=== PATIENT | male | born 1970 ===

== ENCOUNTER 2020-07-31 06:16 | Inpatient (IN) ==
[2020-07-31] MEDS ORDERED: PANTOPRAZOLE INJ 80 MG in SODIUM CHLORIDE 0.9% 100 ML IV STA (06:52)
[2020-07-31] MEDS ORDERED: SODIUM CHLORIDE 0.9% 1,000 ML IV STA (06:52)
[2020-07-31] MEDS ORDERED: OCTREOTIDE 100 MCG/ML SYRINGE IV STA (06:52)
[2020-07-31] MEDS ORDERED: SODIUM CHLORIDE 0.9% 1,000 ML IV PRN ×2 (06:53→09:33)
[2020-07-31] MEDS ORDERED: PANTOPRAZOLE 40 MG VIAL IV ONE (07:05)
[2020-07-31] MEDS ORDERED: THIAMINE INJ 100 MG, FOLIC ACID INJ 1 MG, MAGNESIUM SULF INJ 2 GM, MULTIVITAMIN INJ 10 ... IV ONE (07:05)
[2020-07-31 07:24] LABS: Immature Granulocytes % 1.4 %; Immature Granulocytes Absolute 0.19 #; Lymphocytes # 1.3 10*3/uL (1.4-4.0); Lymphocytes % 9.2 % (21.2-54.2); Mean Corpuscular HGB Conc 26.6 GM/DL (32-36); Mean Corpuscular Volume 88.6 FL (87-102); Mean Platelet Volume 11.5 FL (9.6-12.0); Monocytes % 6.3 % (1.7-12.7); NRBC # 0.06 10*3/uL; Neutrophils % 83.1 % (38.7-73.9); Platelet Count 148 T/CUMM (130-400); Red Blood Count 1.23 MC/CUMM (3.8-5.5); Red Cell Distribution Width 18.6 % (9.3-17.3); White Blood Count 13.9 T/CUMM (4-12)
[2020-07-31 07:27] LABS: Hematocrit 10.9 VOL% (42.0-52.0); Hemoglobin 2.9 GM/DL (14.0-18.0)
[2020-07-31 07:28] LABS: INR 1.7; PT Patient Result 17.8 SECS (9.8-11.9); Partial Thromboplastin Time 22.6 SECS (23.9-33.8)
[2020-07-31 07:39] LABS: Albumin 1.6 G/DL (3.4-5.0); Calcium 7.1 MG/DL (8.5-10.1); Osmolality,Calculated 290.7 MOS/KG (273-304); Potassium 3.7 MMOL/L (3.5-5.1); Total Protein 4.1 G/DL (6.4-8.2)
[2020-07-31 08:12] LABS: Burr Cells Slight; Hypochromasia 2+; Lymphocytes 9 % (20-55); Microcytosis 1+; Nucleated Red Blood Cells 1 (0-5); Ovalocytes Slight; Platelet Estimate Normal; Segmented Neutrophils 81 % (50-85); Total Cells Counted 100
[2020-07-31] MEDS: OCTREOTIDE 500 MCG in SODIUM CHLORIDE 0.9% 100 ML IV SCH ×2 (08:25→18:02)
[2020-07-31] MEDS: PANTOPRAZOLE INJ 200 MG in SODIUM CHLORIDE 0.9% 250 ML IV SCH (08:52)
[2020-07-31] MEDS ORDERED: LACTULOSE 20 GM/30 ML UDCUP PO ONE (10:00)
[2020-07-31] MEDS ORDERED: CALCIUM GLUCONATE 2,000 MG in SODIUM CHLORIDE 0.9% 100 ML IV ONE (12:30)
[2020-07-31 13:07] LABS: Hematocrit 21.8 VOL% (42.0-52.0)
[2020-07-31 13:10] LABS: Hemoglobin 6.8 GM/DL (14.0-18.0)
[2020-07-31] MEDS ORDERED: propofoL 200 MG/20 ML VIAL IV ONE (14:00)
[2020-07-31] MEDS ORDERED: PHENYLEPHRINE 1 MG/10 ML SYRINGE IV ONE (14:00)
[2020-07-31] MEDS ORDERED: LIDOCAINE 2% 5 ML VIAL ONE (14:00)
[2020-07-31] MEDS ORDERED: LACTULOSE 20 GM/30 ML UDCUP PO SCH (15:00)
[2020-07-31] MEDS: BISACODYL 5 MG TABLET PO SCH ×2 (15:31→22:06)
[2020-07-31] MEDS ORDERED: ONDANSETRON 4 MG/2 ML VIAL ONE (16:35)
[2020-07-31] MEDS ORDERED: PROMETHAZINE 25 MG/1 ML VIAL IM PRN (16:40)
[2020-07-31] MEDS ORDERED: PROMETHAZINE 25 MG/1 ML VIAL ONE (16:41)
[2020-07-31] MEDS ORDERED: POLYETHYLENE GLYCOL POWDER 255 GM BOTTLE PO ONE (18:00)
[2020-07-31] MEDS ORDERED: KETOROLAC 30 MG/1 ML VIAL IV ONE (19:41)
[2020-07-31 22:41] LABS: Hematocrit 27.1 VOL% (42.0-52.0); Hemoglobin 8.9 GM/DL (14.0-18.0)
[2020-08-01] MEDS: OCTREOTIDE 500 MCG in SODIUM CHLORIDE 0.9% 100 ML IV SCH ×3 (03:14→13:46)
[2020-08-01 06:23] LABS: Basophils % 0.2 % (0.0-0.8); Eosinophils % 0.2 % (0.00-10.9); Hematocrit 24.3 VOL% (42.0-52.0); Hemoglobin 7.9 GM/DL (14.0-18.0); Immature Granulocytes % 0.8 %; Immature Granulocytes Absolute 0.09 #; Lymphocytes % 8.5 % (21.2-54.2); Mean Corpuscular HGB Conc 32.5 GM/DL (32-36); Mean Corpuscular Volume 87.7 FL (87-102); Mean Platelet Volume 11.4 FL (9.6-12.0); Monocytes % 8.8 % (1.7-12.7); NRBC # 0.13 10*3/uL; Neutrophils % 81.5 % (38.7-73.9); Platelet Count 67 T/CUMM (130-400); Red Blood Count 2.77 MC/CUMM (3.8-5.5); Red Cell Distribution Width 15.1 % (9.3-17.3); White Blood Count 11.7 T/CUMM (4-12)
[2020-08-01 06:35] LABS: INR 1.5; PT Patient Result 16.1 SECS (9.8-11.9)
[2020-08-01] MEDS ORDERED: SODIUM CHLORIDE 0.9% 1,000 ML IV PRN ×2 (06:39→06:42)
[2020-08-01 06:43] LABS: Hypochromasia 1+; Microcytosis 1+; Platelet Estimate Decreased
[2020-08-01 06:53] LABS: Albumin 1.8 G/DL (3.4-5.0); Bilirubin,Total 4.4 MG/DL (0.2-1.0); Calcium 7.5 MG/DL (8.5-10.1); Potassium 3.5 MMOL/L (3.5-5.1); Total Protein 4.6 G/DL (6.4-8.2)
[2020-08-01] MEDS: BISACODYL 5 MG TABLET PO SCH (07:01)
[2020-08-01] MEDS: LACTATED RINGERS 1,000 ML IV SCH (08:00)
[2020-08-01] MEDS ORDERED: propofoL 200 MG/20 ML VIAL IV ONE (08:24)
[2020-08-01] MEDS ORDERED: LIDOCAINE 2% 5 ML VIAL ONE ×2 (08:25→08:55)
[2020-08-01] MEDS ORDERED: PHENYLEPHRINE 1 MG/10 ML SYRINGE IV ONE ×2 (08:43→08:55)
[2020-08-01] MEDS: PANTOPRAZOLE INJ 200 MG in SODIUM CHLORIDE 0.9% 250 ML IV SCH (09:52)
[2020-08-01] MEDS ORDERED: LIDOCAINE 2% TOP JELLY 20 ML VIAL INTRAURETH ONE (14:02)
[2020-08-01 14:41] LABS: Bilirubin,Urine Negative (Negative); Blood, Urine Moderate mg/dL (Negative); Glucose,Urine (UA) Negative (Negative); Hyaline Casts,Urine 3 /LPF (0-3); Ketones,Urine Negative (Negative); Mucus,Urine Few /LPF (Occasional); Nitrite,Urine Negative (Negative); Protein,Urine Negative; RBC,Urine 8 /HPF (0-4); Squamous Epithelial Cell,Urine Occasional /HPF (0-10); Urine Appearance CLEAR (Clear); Urine Color Amber (Yellow); Urine Specific Gravity 1.029 (1.001-1.035); Urine Urobilinogen < 2.0 EU/DL (0.2-1.0); WBC,Urine 3 /HPF (0-6)
[2020-08-02] MEDS: OCTREOTIDE 500 MCG in SODIUM CHLORIDE 0.9% 100 ML IV SCH (00:24)
[2020-08-02 05:05] LABS: Basophils % 0.2 % (0.0-0.8); Eosinophils # 0.1 10*3/uL (0.0-0.87); Eosinophils % 2.4 % (0.00-10.9); Hematocrit 24.4 VOL% (42.0-52.0); Hemoglobin 8.3 GM/DL (14.0-18.0); Immature Granulocytes % 1.5 %; Immature Granulocytes Absolute 0.08 #; Lymphocytes # 0.6 10*3/uL (1.4-4.0); Lymphocytes % 10.8 % (21.2-54.2); Mean Corpuscular Volume 86.2 FL (87-102); Mean Platelet Volume 10.2 FL (9.6-12.0); Monocytes % 9.3 % (1.7-12.7); NRBC # 0.04 10*3/uL; Neutrophils % 75.8 % (38.7-73.9); Platelet Count 46 T/CUMM (130-400); Red Blood Count 2.83 MC/CUMM (3.8-5.5); Red Cell Distribution Width 15.4 % (9.3-17.3); White Blood Count 5.5 T/CUMM (4-12)
[2020-08-02 05:13] LABS: INR 1.3; PT Patient Result 14.2 SECS (9.8-11.9)
[2020-08-02 05:20] LABS: Albumin 1.9 G/DL (3.4-5.0); Bilirubin,Total 3.6 MG/DL (0.2-1.0); Calcium 7.3 MG/DL (8.5-10.1); Osmolality,Calculated 282.4 MOS/KG (273-304); Potassium 2.9 MMOL/L (3.5-5.1); Total Protein 4.6 G/DL (6.4-8.2)
[2020-08-02 05:31] LABS: Eosinophils 2 % (0-10); Hypochromasia 1+; Lymphocytes 9 % (20-55); Microcytosis 1+; Polychromasia Few; Segmented Neutrophils 85 % (50-85); Total Cells Counted 100
[2020-08-02 05:32] LABS: Platelet Estimate Decreased
[2020-08-02] MEDS: LACTULOSE 20 GM/30 ML UDCUP PO SCH ×3 (08:27→20:56)
[2020-08-02] MEDS: POTASSIUM CHLORIDE 20 MEQ/15 ML UDCUP PO SCH ×2 (08:27→20:56)
[2020-08-02] MEDS: LACTATED RINGERS 1,000 ML IV SCH (08:30)
[2020-08-02] MEDS: PANTOPRAZOLE INJ 200 MG in SODIUM CHLORIDE 0.9% 250 ML IV SCH (13:21)
[2020-08-03 04:32] LABS: Basophils % 0.3 % (0.0-0.8); Eosinophils # 0.1 10*3/uL (0.0-0.87); Eosinophils % 3.1 % (0.00-10.9); Hematocrit 25.1 VOL% (42.0-52.0); Immature Granulocytes % 1.6 %; Immature Granulocytes Absolute 0.06 #; Lymphocytes # 0.6 10*3/uL (1.4-4.0); Lymphocytes % 15.3 % (21.2-54.2); Mean Corpuscular HGB Conc 31.9 GM/DL (32-36); Mean Platelet Volume 10.5 FL (9.6-12.0); Monocytes % 10.6 % (1.7-12.7); NRBC # 0.02 10*3/uL; Neutrophils % 69.1 % (38.7-73.9); Platelet Count 55 T/CUMM (130-400); Red Blood Count 2.79 MC/CUMM (3.8-5.5); White Blood Count 3.9 T/CUMM (4-12)
[2020-08-03 04:52] LABS: Hypochromasia 1+; Microcytosis 1+; Platelet Estimate Decreased
[2020-08-03 04:59] LABS: Albumin 1.7 G/DL (3.4-5.0); Calcium 7.1 MG/DL (8.5-10.1); Osmolality,Calculated 279.4 MOS/KG (273-304); Potassium 2.8 MMOL/L (3.5-5.1); Total Protein 4.7 G/DL (6.4-8.2)
[2020-08-03] MEDS: LACTULOSE 20 GM/30 ML UDCUP PO SCH ×2 (08:15→21:06)
[2020-08-03] MEDS: SPIRONOLACTONE 50 MG TABLET PO SCH (08:15)
[2020-08-03] MEDS: POTASSIUM CHLORIDE 20 MEQ/15 ML UDCUP PO SCH ×3 (08:46→21:05)
[2020-08-03] MEDS ORDERED: POTASSIUM CHLORIDE 20 MEQ/15 ML UDCUP PO SCH (09:00)
[2020-08-03] MEDS: PANTOPRAZOLE 40 MG VIAL IV SCH (21:07)
[2020-08-04] MEDS: POTASSIUM CHLORIDE 20 MEQ/15 ML UDCUP PO SCH ×4 (02:42→20:59)
[2020-08-04 05:27] LABS: Basophils % 0.2 % (0.0-0.8); Eosinophils # 0.1 10*3/uL (0.0-0.87); Hematocrit 24.2 VOL% (42.0-52.0); Hemoglobin 8.2 GM/DL (14.0-18.0); Immature Granulocytes % 1.2 %; Immature Granulocytes Absolute 0.05 #; Lymphocytes # 0.7 10*3/uL (1.4-4.0); Lymphocytes % 15.9 % (21.2-54.2); Mean Corpuscular HGB Conc 33.9 GM/DL (32-36); Mean Corpuscular Volume 87.1 FL (87-102); Mean Platelet Volume 10.3 FL (9.6-12.0); Monocytes % 10.8 % (1.7-12.7); Neutrophils % 68.9 % (38.7-73.9); Red Blood Count 2.78 MC/CUMM (3.8-5.5); Red Cell Distribution Width 16.4 % (9.3-17.3); White Blood Count 4.3 T/CUMM (4-12)
[2020-08-04 05:37] LABS: Platelet Count 55 T/CUMM (130-400)
[2020-08-04 05:52] LABS: Hypochromasia 1+; Microcytosis 1+; Platelet Estimate Decreased; Polychromasia Slight
[2020-08-04 05:57] LABS: Osmolality,Calculated 272.7 MOS/KG (273-304); Potassium 3.2 MMOL/L (3.5-5.1)
[2020-08-04] MEDS ORDERED: MAGNESIUM SULF RIDER 4 GM/100 ML PREMIX IV PRN (07:22)
[2020-08-04] MEDS ORDERED: MAGNESIUM SULF RIDER 2 GM/50 ML PREMIX IV PRN (07:22)
[2020-08-04] MEDS: SPIRONOLACTONE 50 MG TABLET PO SCH (08:29)
[2020-08-04] MEDS: LACTULOSE 20 GM/30 ML UDCUP PO SCH ×2 (08:29→20:59)
[2020-08-04] MEDS: PANTOPRAZOLE 40 MG VIAL IV SCH (08:29)
[2020-08-04] MEDS ORDERED: SODIUM CHLORIDE 0.9% 1,000 ML IV PRN (11:02)
[2020-08-05] MEDS: POTASSIUM CHLORIDE 20 MEQ/15 ML UDCUP PO SCH ×2 (02:09→08:36)
[2020-08-05 06:05] LABS: Basophils % 0.5 % (0.0-0.8); Eosinophils # 0.1 10*3/uL (0.0-0.87); Eosinophils % 2.9 % (0.00-10.9); Hematocrit 27.5 VOL% (42.0-52.0); Hemoglobin 8.9 GM/DL (14.0-18.0); Immature Granulocytes Absolute 0.04 #; Lymphocytes # 0.4 10*3/uL (1.4-4.0); Mean Corpuscular HGB Conc 32.4 GM/DL (32-36); Mean Corpuscular Volume 88.7 FL (87-102); Mean Platelet Volume 10.9 FL (9.6-12.0); Neutrophils % 74.6 % (38.7-73.9); Platelet Count 56 T/CUMM (130-400); Red Cell Distribution Width 17.1 % (9.3-17.3); White Blood Count 3.8 T/CUMM (4-12)
[2020-08-05 06:28] LABS: Hypochromasia 1+; Microcytosis 1+; Platelet Estimate Decreased
[2020-08-05 06:29] LABS: Calcium 7.6 MG/DL (8.5-10.1); Osmolality,Calculated 269.8 MOS/KG (273-304); Potassium 4.4 MMOL/L (3.5-5.1)
[2020-08-05 06:30] LABS: Calcium 7.5 MG/DL (8.5-10.1); Osmolality,Calculated 271.7 MOS/KG (273-304); Potassium 4.5 MMOL/L (3.5-5.1)
[2020-08-05] MEDS: PANTOPRAZOLE 40 MG TABLET PO SCH (08:32)
[2020-08-05] MEDS: LACTULOSE 20 GM/30 ML UDCUP PO SCH ×2 (08:32→21:45)
[2020-08-05] MEDS: SPIRONOLACTONE 50 MG TABLET PO SCH (08:33)
[2020-08-05] MEDS: FUROSEMIDE 20 MG TABLET PO SCH (08:33)
[2020-08-06 05:12] LABS: Basophils % 0.2 % (0.0-0.8); Eosinophils # 0.1 10*3/uL (0.0-0.87); Eosinophils % 3.4 % (0.00-10.9); Hematocrit 27.1 VOL% (42.0-52.0); Hemoglobin 8.9 GM/DL (14.0-18.0); Immature Granulocytes Absolute 0.04 #; Lymphocytes # 0.6 10*3/uL (1.4-4.0); Lymphocytes % 13.7 % (21.2-54.2); Mean Corpuscular HGB Conc 32.8 GM/DL (32-36); Mean Corpuscular Volume 88.3 FL (87-102); Mean Platelet Volume 10.7 FL (9.6-12.0); Monocytes % 7.7 % (1.7-12.7); Red Blood Count 3.07 MC/CUMM (3.8-5.5); Red Cell Distribution Width 17.5 % (9.3-17.3); White Blood Count 4.2 T/CUMM (4-12)
[2020-08-06 05:18] LABS: Platelet Count 62 T/CUMM (130-400)
[2020-08-06 05:31] LABS: Albumin 1.9 G/DL (3.4-5.0); Bilirubin,Total 2.1 MG/DL (0.2-1.0); Calcium 7.5 MG/DL (8.5-10.1); Potassium 3.5 MMOL/L (3.5-5.1); Total Protein 5.5 G/DL (6.4-8.2)
[2020-08-06 06:01] LABS: Hypochromasia 1+; Microcytosis 1+; Platelet Estimate Decreased
[2020-08-06] MEDS: LACTULOSE 20 GM/30 ML UDCUP PO SCH ×2 (08:41→20:34)
[2020-08-06] MEDS: SPIRONOLACTONE 50 MG TABLET PO SCH (08:42)
[2020-08-06] MEDS: PANTOPRAZOLE 40 MG TABLET PO SCH (08:42)
[2020-08-06] MEDS: FUROSEMIDE 20 MG TABLET PO SCH (08:42)
[2020-08-07] MEDS: PANTOPRAZOLE 40 MG TABLET PO SCH (08:10)
[2020-08-07] MEDS: SPIRONOLACTONE 50 MG TABLET PO SCH (08:11)
[2020-08-07] MEDS: FUROSEMIDE 20 MG TABLET PO SCH (08:11)
[2020-08-07] MEDS: LACTULOSE 20 GM/30 ML UDCUP PO SCH (08:11)
[2020-08-07 15:37] VITALS: BP 132/58
== END 2020-08-07 16:59 | disposition home or self-care (01) | DRG 432 ==
LOC: N.ED 06:16 → SUATTDRO 07:14 → N.EDINP 07:14 → N.ICU 08:19 → N.4E 08-03 18:10
PROVIDERS: ADMIT Internal Medicine; ATTEND Internal Medicine
PROC: EGDWEBL (ICD-10-PCS; 2020-07-31 11:35)

== ENCOUNTER 2020-08-10 20:00 | Inpatient (IN) ==
[2020-08-10] MEDS ORDERED: ONDANSETRON 4 MG/2 ML VIAL IV STA (20:14)
[2020-08-10] MEDS ORDERED: SODIUM CHLORIDE 0.9% 1,000 ML IV STA (20:14)
[2020-08-10 20:33] LABS: Basophils % 0.1 % (0.0-0.8); Eosinophils % 0.1 % (0.00-10.9); Immature Granulocytes % 1.4 %; Immature Granulocytes Absolute 0.36 #; Lymphocytes # 2.2 10*3/uL (1.4-4.0); Lymphocytes % 8.5 % (21.2-54.2); Mean Corpuscular HGB Conc 29.9 GM/DL (32-36); Mean Corpuscular Volume 98.6 FL (87-102); Mean Platelet Volume 9.7 FL (9.6-12.0); Monocytes % 5.8 % (1.7-12.7); NRBC # 0.02 10*3/uL; Neutrophils % 84.1 % (38.7-73.9); Platelet Count 244 T/CUMM (130-400); Red Cell Distribution Width 19.1 % (9.3-17.3); White Blood Count 25.6 T/CUMM (4-12)
[2020-08-10 20:40] LABS: Hemoglobin 4.1 GM/DL (14.0-18.0); Red Blood Count 1.39 MC/CUMM (3.8-5.5)
[2020-08-10 20:41] LABS: Hematocrit 13.7 VOL% (42.0-52.0)
[2020-08-10 20:50] LABS: INR 2.1; PT Patient Result 22.5 SECS (10.5-12.0)
[2020-08-10 21:07] LABS: Albumin 1.4 G/DL (3.4-5.0); Bilirubin,Total 2.1 MG/DL (0.2-1.0); Calcium 7.8 MG/DL (8.5-10.1); Osmolality,Calculated 281.8 MOS/KG (273-304); Potassium 4.7 MMOL/L (3.5-5.1); Total Protein 4.4 G/DL (6.4-8.2)
[2020-08-10] MEDS ORDERED: LACTULOSE 20 GM/30 ML UDCUP PO STA ×2 (21:20→21:50)
[2020-08-10] MEDS ORDERED: OCTREOTIDE 100 MCG/ML SYRINGE IV ONE (21:36)
[2020-08-10] MEDS ORDERED: PANTOPRAZOLE 40 MG VIAL IV STA (21:39)
[2020-08-10] MEDS ORDERED: SODIUM CHLORIDE 0.9% 1,000 ML IV PRN (22:21)
[2020-08-10] MEDS ORDERED: ALBUTEROL 2.5 MG/3 ML NEB RESP TX PRN (22:22)
[2020-08-10] MEDS ORDERED: ONDANSETRON 4 MG/2 ML VIAL IV PRN (22:22)
[2020-08-10 22:41] LABS: Hypochromasia 2+; Lymphocytes 4 % (20-55); Platelet Estimate Normal; Segmented Neutrophils 94 % (50-85); Total Cells Counted 100
[2020-08-10 22:42] LABS: Acanthocytes Few; Anisocytosis 2+; Macrocytosis 1+; Microcytosis 1+; Ovalocytes 2+; Polychromasia Few; Target Cells 1+
[2020-08-10] MEDS: LACTULOSE 20 GM/30 ML UDCUP RECTAL SCH (23:18)
[2020-08-11] MEDS ORDERED: LORazepam 2 MG/1 ML VIAL IV STA (00:52)
[2020-08-11] MEDS: PANTOPRAZOLE INJ 200 MG in SODIUM CHLORIDE 0.9% 250 ML IV SCH ×4 (03:38→22:05)
[2020-08-11] MEDS: LACTULOSE 20 GM/30 ML UDCUP RECTAL SCH ×2 (05:00→09:59)
[2020-08-11 05:09] LABS: Basophils # 0.1 10*3/uL (0.0-0.2); Basophils % 0.2 % (0.0-0.8); Eosinophils % 0.1 % (0.00-10.9); Immature Granulocytes % 2.3 %; Immature Granulocytes Absolute 0.93 #; Lymphocytes # 2.3 10*3/uL (1.4-4.0); Lymphocytes % 5.7 % (21.2-54.2); Mean Corpuscular HGB Conc 29.6 GM/DL (32-36); Mean Corpuscular Volume 101.2 FL (87-102); Monocytes % 5.3 % (1.7-12.7); NRBC # 0.02 10*3/uL; Neutrophils % 86.4 % (38.7-73.9); Platelet Count 237 T/CUMM (130-400); Red Blood Count 1.67 MC/CUMM (3.8-5.5); Red Cell Distribution Width 17.6 % (9.3-17.3)
[2020-08-11 05:19] LABS: Hematocrit 16.9 VOL% (42.0-52.0)
[2020-08-11 05:29] LABS: Band Neutrophils 2 % (0-10); Lymphocytes 3 % (20-55); Segmented Neutrophils 93 % (50-85); Total Cells Counted 100
[2020-08-11 05:36] LABS: Hypochromasia 1+
[2020-08-11 05:37] LABS: Anisocytosis 1+; Burr Cells Few; Microcytosis 1+; Platelet Estimate Normal; Polychromasia Slight
[2020-08-11] MEDS ORDERED: SODIUM CHLORIDE 0.9% 1,000 ML IV STA (06:06)
[2020-08-11] MEDS: OCTREOTIDE 500 MCG in SODIUM CHLORIDE 0.9% 99 ML IV SCH ×4 (06:26→22:00)
[2020-08-11 07:33] LABS: Albumin 1.5 G/DL (3.4-5.0); Bilirubin,Total 2.8 MG/DL (0.2-1.0); Calcium 8.3 MG/DL (8.5-10.1); Osmolality,Calculated 287.4 MOS/KG (273-304); Potassium 4.9 MMOL/L (3.5-5.1); Total Protein 4.4 G/DL (6.4-8.2)
[2020-08-11 08:27] LABS: INR 2.1
[2020-08-11 08:46] LABS: PT Patient Result 22.4 SECS (10.5-12.0)
[2020-08-11] MEDS ORDERED: fentaNYL 100 MCG/2 ML VIAL ONE (08:46)
[2020-08-11] MEDS ORDERED: LIDOCAINE 2% 5 ML VIAL ONE (08:46)
[2020-08-11] MEDS ORDERED: ROCURONIUM 50 MG/5 ML VIAL IV ONE (08:46)
[2020-08-11] MEDS ORDERED: MIDAZOLAM 10 MG/2 ML VIAL ONE (08:49)
[2020-08-11] MEDS ORDERED: KETAMINE 500 MG/10 ML VIAL ONE (09:28)
[2020-08-11] MEDS: PIPERACILLIN/TAZOBACTAM 3,375 MG in SODIUM CHLORIDE 0.9% 100 ML IV SCH ×4 (09:59→23:45)
[2020-08-11 10:12] LABS: ABG Base Excess -8.8 MMOL/L (-2.5-2.5); ABG HCO3 17.2 MMOL/L (20-26); ABG Oxygen Saturation 99.1 % (95-100); ABG PCO2 38.6 MM HG (35-48); ABG PH 7.264 (7.35-7.45); ABG TCO2 16.9 MMOL/L (23-27); Allen Test Positive; Pt O2 Delivery Device Ventilator
[2020-08-11 11:08] LABS: Hematocrit 22.3 VOL% (42.0-52.0)
[2020-08-11 11:17] LABS: Hemoglobin 6.9 GM/DL (14.0-18.0)
[2020-08-11] MEDS: LACTULOSE 320 GM/480 ML BOTTLE RECTAL SCH ×3 (12:05→23:45)
[2020-08-11 13:51] LABS: ABG Base Excess -1.2 MMOL/L (-2.5-2.5); ABG HCO3 23.4 MMOL/L (20-26); ABG Oxygen Saturation 99.9 % (95-100); ABG PH 7.482 (7.35-7.45); ABG TCO2 20.1 MMOL/L (23-27); Allen Test Positive; Pt O2 Delivery Device Ventilator
[2020-08-11 15:26] LABS: Bacteria,Urine Occasional /HPF (Few); Bilirubin,Urine Negative (Negative); Blood, Urine Small mg/dL (Negative); Glucose,Urine (UA) Negative (Negative); Ketones,Urine Negative (Negative); Mucus,Urine Occasional /LPF (Occasional); Nitrite,Urine Negative (Negative); Protein,Urine Negative; RBC,Urine 5 /HPF (0-4); Urine Appearance CLEAR (Clear); Urine Color Yellow (Yellow); Urine Specific Gravity 1.017 (1.001-1.035); Urine Urobilinogen < 2.0 EU/DL (0.2-1.0)
[2020-08-11 16:06] LABS: Hematocrit 24.5 VOL% (42.0-52.0)
[2020-08-11] MEDS: MIDAZOLAM 100 MG in SODIUM CHLORIDE 0.9% 80 ML IV PRN (17:49)
[2020-08-11 21:11] LABS: Hemoglobin 7.8 GM/DL (14.0-18.0)
[2020-08-12 04:06] LABS: Hematocrit 22.4 VOL% (42.0-52.0); Hemoglobin 7.5 GM/DL (14.0-18.0)
[2020-08-12 04:07] LABS: Basophils % 0.1 % (0.0-0.8); Eosinophils % 0.4 % (0.00-10.9); Hematocrit 22.6 VOL% (42.0-52.0); Hemoglobin 7.5 GM/DL (14.0-18.0); Immature Granulocytes % 0.9 %; Lymphocytes # 0.9 10*3/uL (1.4-4.0); Lymphocytes % 8.3 % (21.2-54.2); Mean Corpuscular HGB Conc 33.2 GM/DL (32-36); Mean Corpuscular Volume 91.5 FL (87-102); Mean Platelet Volume 9.9 FL (9.6-12.0); Monocytes % 6.7 % (1.7-12.7); NRBC # 0.03 10*3/uL; Neutrophils % 83.6 % (38.7-73.9); Platelet Count 74 T/CUMM (130-400); Red Blood Count 2.47 MC/CUMM (3.8-5.5); Red Cell Distribution Width 15.9 % (9.3-17.3); White Blood Count 11.3 T/CUMM (4-12)
[2020-08-12 04:20] LABS: Albumin 1.7 G/DL (3.4-5.0); Bilirubin,Total 4.2 MG/DL (0.2-1.0); Calcium 7.6 MG/DL (8.5-10.1); Osmolality,Calculated 292.1 MOS/KG (273-304); Total Protein 4.7 G/DL (6.4-8.2)
[2020-08-12 04:44] LABS: ABG Base Excess -1.4 MMOL/L (-2.5-2.5); ABG HCO3 21.7 MMOL/L (20-26); ABG Oxygen Saturation 98.5 % (95-100); ABG PCO2 29.4 MM HG (35-48); ABG PH 7.485 (7.35-7.45); ABG PO2 156.7 MM HG (80-95); ABG TCO2 22.6 MMOL/L (23-27); Allen Test Positive; Pt O2 Delivery Device Ventilator
[2020-08-12 05:04] LABS: INR 1.6; PT Patient Result 17.4 SECS (10.5-12.0)
[2020-08-12] MEDS: LACTULOSE 320 GM/480 ML BOTTLE RECTAL SCH ×5 (05:40→23:30)
[2020-08-12 07:09] LABS: Hypochromasia Slight; Microcytosis 1+
[2020-08-12 07:10] LABS: Platelet Estimate Decreased
[2020-08-12] MEDS: PIPERACILLIN/TAZOBACTAM 3,375 MG in SODIUM CHLORIDE 0.9% 100 ML IV SCH (07:15)
[2020-08-12] MEDS: OCTREOTIDE 500 MCG in SODIUM CHLORIDE 0.9% 99 ML IV SCH ×2 (08:59→20:42)
[2020-08-12 09:19] LABS: Hematocrit 22.6 VOL% (42.0-52.0); Hemoglobin 7.2 GM/DL (14.0-18.0)
[2020-08-12 10:06] LABS: ABG Base Excess 0.2 MMOL/L (-2.5-2.5); ABG HCO3 24.7 MMOL/L (20-26); ABG Oxygen Saturation 99.8 % (95-100); ABG PH 7.474 (7.35-7.45); ABG TCO2 22.1 MMOL/L (23-27); Allen Test Positive; Pt O2 Delivery Device Ventilator
[2020-08-12] MEDS: CEFEPIME 1,000 MG in SODIUM CHLORIDE 0.9% 100 ML IV SCH ×3 (12:36→23:30)
[2020-08-12] MEDS ORDERED: PHYTONADIONE 10 MG/1 ML AMP SUBCUT ONE (13:28)
[2020-08-12 15:08] LABS: Hematocrit 21.6 VOL% (42.0-52.0); Hemoglobin 6.9 GM/DL (14.0-18.0)
[2020-08-12 19:06] LABS: Hematocrit 24.4 VOL% (42.0-52.0); Hemoglobin 7.7 GM/DL (14.0-18.0)
[2020-08-12] MEDS ORDERED: SODIUM CHLORIDE 0.9% 1,000 ML IV PRN (20:15)
[2020-08-12] MEDS: PANTOPRAZOLE INJ 200 MG in SODIUM CHLORIDE 0.9% 250 ML IV SCH (22:25)
[2020-08-13 01:58] LABS: Hematocrit 29.5 VOL% (42.0-52.0); Hemoglobin 9.3 GM/DL (14.0-18.0)
[2020-08-13 04:43] LABS: ABG Base Excess -0.4 MMOL/L (-2.5-2.5); ABG HCO3 24.1 MMOL/L (20-26); ABG Oxygen Saturation 99.7 % (95-100); ABG PCO2 33.7 MM HG (35-48); ABG PH 7.447 (7.35-7.45); ABG TCO2 21.4 MMOL/L (23-27); Allen Test Positive; Pt O2 Delivery Device Ventilator
[2020-08-13 04:49] LABS: Basophils % 0.3 % (0.0-0.8); Eosinophils % 0.9 % (0.00-10.9); Hematocrit 26.1 VOL% (42.0-52.0); Hemoglobin 8.4 GM/DL (14.0-18.0); Immature Granulocytes % 1.2 %; Immature Granulocytes Absolute 0.04 #; Lymphocytes # 0.5 10*3/uL (1.4-4.0); Lymphocytes % 13.4 % (21.2-54.2); Mean Corpuscular HGB Conc 32.2 GM/DL (32-36); Mean Corpuscular Volume 92.2 FL (87-102); Mean Platelet Volume 9.7 FL (9.6-12.0); Monocytes % 8.4 % (1.7-12.7); Neutrophils % 75.8 % (38.7-73.9); Platelet Count 55 T/CUMM (130-400); Red Blood Count 2.83 MC/CUMM (3.8-5.5); Red Cell Distribution Width 16.3 % (9.3-17.3); White Blood Count 3.4 T/CUMM (4-12)
[2020-08-13 05:31] LABS: INR 1.5; PT Patient Result 16.1 SECS (10.5-12.0)
[2020-08-13 05:35] LABS: Albumin 1.6 G/DL (3.4-5.0); Bilirubin,Total 3.5 MG/DL (0.2-1.0); Calcium 7.5 MG/DL (8.5-10.1); Osmolality,Calculated 298.3 MOS/KG (273-304); Potassium 3.6 MMOL/L (3.5-5.1); Total Protein 4.5 G/DL (6.4-8.2)
[2020-08-13] MEDS: CEFEPIME 1,000 MG in SODIUM CHLORIDE 0.9% 100 ML IV SCH ×3 (05:40→17:30)
[2020-08-13] MEDS: LACTULOSE 320 GM/480 ML BOTTLE RECTAL SCH ×3 (06:10→17:42)
[2020-08-13] MEDS: OCTREOTIDE 500 MCG in SODIUM CHLORIDE 0.9% 99 ML IV SCH ×2 (07:14→18:56)
[2020-08-13 07:32] LABS: Platelet Estimate Decreased
[2020-08-13 07:33] LABS: Polychromasia Slight
[2020-08-13 07:34] LABS: Anisocytosis 1+; Microcytosis 1+
[2020-08-13] MEDS: PANTOPRAZOLE 40 MG VIAL IV SCH ×2 (08:17→21:19)
[2020-08-13] MEDS ORDERED: PANTOPRAZOLE 40 MG TABLET PO SCH (09:00)
[2020-08-13] MEDS ORDERED: PHYTONADIONE 10 MG/1 ML AMP SUBCUT ONE (11:29)
[2020-08-13 13:25] LABS: Hematocrit 27.2 VOL% (42.0-52.0); Hemoglobin 8.4 GM/DL (14.0-18.0)
[2020-08-13] MEDS: MIDAZOLAM 100 MG in SODIUM CHLORIDE 0.9% 80 ML IV PRN (16:07)
[2020-08-14] MEDS: OCTREOTIDE 500 MCG in SODIUM CHLORIDE 0.9% 99 ML IV SCH ×2 (00:21→04:28)
[2020-08-14] MEDS: CEFEPIME 1,000 MG in SODIUM CHLORIDE 0.9% 100 ML IV SCH ×4 (00:50→17:26)
[2020-08-14 04:22] LABS: ABG Base Excess -2.4 MMOL/L (-2.5-2.5); ABG HCO3 21.7 MMOL/L (20-26); ABG Oxygen Saturation 98.4 % (95-100); ABG PCO2 34.3 MM HG (35-48); ABG PH 7.419 (7.35-7.45); ABG PO2 129.6 MM HG (80-95); ABG TCO2 22.8 MMOL/L (23-27); Allen Test Positive; Pt O2 Delivery Device Ventilator
[2020-08-14 04:26] LABS: Basophils % 0.4 % (0.0-0.8); Eosinophils # 0.1 10*3/uL (0.0-0.87); Eosinophils % 1.9 % (0.00-10.9); Hematocrit 28.2 VOL% (42.0-52.0); Hemoglobin 8.6 GM/DL (14.0-18.0); Immature Granulocytes % 0.8 %; Immature Granulocytes Absolute 0.02 #; Lymphocytes # 0.4 10*3/uL (1.4-4.0); Lymphocytes % 15.2 % (21.2-54.2); Mean Corpuscular HGB Conc 30.5 GM/DL (32-36); Mean Corpuscular Volume 94.6 FL (87-102); Mean Platelet Volume 9.5 FL (9.6-12.0); Monocytes % 8.4 % (1.7-12.7); Neutrophils % 73.3 % (38.7-73.9); Platelet Count 65 T/CUMM (130-400); Red Blood Count 2.98 MC/CUMM (3.8-5.5); Red Cell Distribution Width 16.4 % (9.3-17.3); White Blood Count 2.6 T/CUMM (4-12)
[2020-08-14 04:47] LABS: Hypochromasia 2+; Microcytosis 1+; Platelet Estimate Decreased
[2020-08-14 05:05] LABS: Albumin 1.7 G/DL (3.4-5.0); Bilirubin,Total 3.6 MG/DL (0.2-1.0); Calcium 7.4 MG/DL (8.5-10.1); Osmolality,Calculated 301.9 MOS/KG (273-304); Potassium 3.5 MMOL/L (3.5-5.1); Total Protein 4.9 G/DL (6.4-8.2)
[2020-08-14] MEDS: LACTULOSE 320 GM/480 ML BOTTLE RECTAL SCH ×6 (05:20→23:52)
[2020-08-14] MEDS: PANTOPRAZOLE 40 MG VIAL IV SCH ×2 (09:04→21:15)
[2020-08-14] MEDS: MIDAZOLAM 100 MG in SODIUM CHLORIDE 0.9% 80 ML IV PRN ×2 (10:37→22:37)
[2020-08-15] MEDS: CEFEPIME 1,000 MG in SODIUM CHLORIDE 0.9% 100 ML IV SCH ×5 (00:20→23:30)
[2020-08-15] MEDS ORDERED: MORPHINE 4 MG/1 ML VIAL IV PRN (00:35)
[2020-08-15 04:04] LABS: ABG Base Excess -3.7 MMOL/L (-2.5-2.5); ABG HCO3 20.8 MMOL/L (20-26); ABG Oxygen Saturation 97.8 % (95-100); ABG PCO2 35.5 MM HG (35-48); ABG PH 7.386 (7.35-7.45); ABG PO2 116.1 MM HG (80-95); ABG TCO2 21.9 MMOL/L (23-27); Allen Test Positive; Pt O2 Delivery Device Ventilator
[2020-08-15] MEDS: LACTULOSE 320 GM/480 ML BOTTLE RECTAL SCH ×4 (04:37→22:40)
[2020-08-15 05:31] LABS: INR 1.3; PT Patient Result 13.9 SECS (10.5-12.0)
[2020-08-15 05:52] LABS: Basophils % 0.3 % (0.0-0.8); Eosinophils # 0.1 10*3/uL (0.0-0.87); Eosinophils % 1.8 % (0.00-10.9); Hemoglobin 8.9 GM/DL (14.0-18.0); Immature Granulocytes % 0.6 %; Immature Granulocytes Absolute 0.02 #; Lymphocytes # 0.5 10*3/uL (1.4-4.0); Lymphocytes % 15.2 % (21.2-54.2); Mean Corpuscular HGB Conc 31.8 GM/DL (32-36); Mean Platelet Volume 9.3 FL (9.6-12.0); Monocytes % 7.3 % (1.7-12.7); Neutrophils % 74.8 % (38.7-73.9); Platelet Count 79 T/CUMM (130-400); Red Blood Count 2.98 MC/CUMM (3.8-5.5); Red Cell Distribution Width 16.6 % (9.3-17.3); White Blood Count 3.3 T/CUMM (4-12)
[2020-08-15 06:12] LABS: Hypochromasia 1+
[2020-08-15 06:13] LABS: Microcytosis 1+; Platelet Estimate Decreased; Polychromasia Slight
[2020-08-15 06:15] LABS: Albumin 1.8 G/DL (3.4-5.0); Bilirubin,Total 4.6 MG/DL (0.2-1.0); Calcium 7.7 MG/DL (8.5-10.1); Osmolality,Calculated 304.6 MOS/KG (273-304); Potassium 3.8 MMOL/L (3.5-5.1); Total Protein 5.3 G/DL (6.4-8.2)
[2020-08-15] MEDS: PANTOPRAZOLE 40 MG VIAL IV SCH ×2 (08:12→20:17)
[2020-08-15] MEDS ORDERED: LIDOCAINE 2% TOP JELLY 20 ML VIAL INTRAURETH ONE ×2 (10:45→11:00)
[2020-08-16 04:11] LABS: ABG Base Excess -2.5 MMOL/L (-2.5-2.5); ABG HCO3 21.1 MMOL/L (20-26); ABG Oxygen Saturation 95.7 % (95-100); ABG PH 7.438 (7.35-7.45); ABG PO2 81.9 MM HG (80-95); ABG TCO2 22.1 MMOL/L (23-27)
[2020-08-16 04:32] LABS: Basophils % 0.4 % (0.0-0.8); Eosinophils % 1.1 % (0.00-10.9); Hematocrit 27.2 VOL% (42.0-52.0); Hemoglobin 8.7 GM/DL (14.0-18.0); Immature Granulocytes % 0.7 %; Immature Granulocytes Absolute 0.02 #; Lymphocytes # 0.4 10*3/uL (1.4-4.0); Lymphocytes % 12.7 % (21.2-54.2); Mean Corpuscular Volume 93.8 FL (87-102); Mean Platelet Volume 9.2 FL (9.6-12.0); Neutrophils % 77.1 % (38.7-73.9); Platelet Count 70 T/CUMM (130-400); White Blood Count 2.8 T/CUMM (4-12)
[2020-08-16] MEDS: LACTULOSE 320 GM/480 ML BOTTLE RECTAL SCH ×3 (04:32→20:37)
[2020-08-16 04:39] LABS: INR 1.3; PT Patient Result 14.1 SECS (10.5-12.0)
[2020-08-16 05:08] LABS: Albumin 1.8 G/DL (3.4-5.0); Bilirubin,Total 4.1 MG/DL (0.2-1.0); Calcium 7.9 MG/DL (8.5-10.1); Osmolality,Calculated 305.4 MOS/KG (273-304); Potassium 3.9 MMOL/L (3.5-5.1); Total Protein 5.5 G/DL (6.4-8.2)
[2020-08-16] MEDS: CEFEPIME 1,000 MG in SODIUM CHLORIDE 0.9% 100 ML IV SCH ×4 (05:20→23:28)
[2020-08-16] MEDS: PANTOPRAZOLE 40 MG VIAL IV SCH ×2 (08:41→20:37)
[2020-08-16] MEDS: LACTATED RINGERS 1,000 ML IV SCH (10:40)
[2020-08-17] MEDS: LACTATED RINGERS 1,000 ML IV SCH ×2 (01:31→14:22)
[2020-08-17] MEDS: LACTULOSE 320 GM/480 ML BOTTLE RECTAL SCH (04:45)
[2020-08-17] MEDS: CEFEPIME 1,000 MG in SODIUM CHLORIDE 0.9% 100 ML IV SCH ×3 (05:42→17:37)
[2020-08-17 05:47] LABS: Basophils % 0.3 % (0.0-0.8); Eosinophils # 0.1 10*3/uL (0.0-0.87); Eosinophils % 2.4 % (0.00-10.9); Hematocrit 28.9 VOL% (42.0-52.0); Hemoglobin 9.3 GM/DL (14.0-18.0); Immature Granulocytes Absolute 0.03 #; Lymphocytes # 0.4 10*3/uL (1.4-4.0); Lymphocytes % 14.8 % (21.2-54.2); Mean Corpuscular HGB Conc 32.2 GM/DL (32-36); Mean Corpuscular Volume 93.8 FL (87-102); Mean Platelet Volume 9.5 FL (9.6-12.0); Monocytes % 8.9 % (1.7-12.7); Neutrophils % 72.6 % (38.7-73.9); Platelet Count 72 T/CUMM (130-400); Red Blood Count 3.08 MC/CUMM (3.8-5.5); Red Cell Distribution Width 17.1 % (9.3-17.3); White Blood Count 2.9 T/CUMM (4-12)
[2020-08-17 05:54] LABS: INR 1.4; PT Patient Result 14.9 SECS (10.5-12.0)
[2020-08-17 06:06] LABS: Hypochromasia 1+; Microcytosis 1+; Platelet Estimate Decreased
[2020-08-17 06:13] LABS: Albumin 1.9 G/DL (3.4-5.0); Bilirubin,Total 4.6 MG/DL (0.2-1.0); Calcium 7.8 MG/DL (8.5-10.1); Osmolality,Calculated 302.6 MOS/KG (273-304); Potassium 3.8 MMOL/L (3.5-5.1); Total Protein 5.6 G/DL (6.4-8.2)
[2020-08-17] MEDS: PANTOPRAZOLE 40 MG TABLET PO SCH ×2 (08:20→18:00)
[2020-08-17] MEDS: PROPRANOLOL 10 MG TABLET PO SCH ×3 (08:20→21:06)
[2020-08-17] MEDS: LACTULOSE 20 GM/30 ML UDCUP PO SCH ×3 (08:20→21:06)
[2020-08-18] MEDS: CEFEPIME 1,000 MG in SODIUM CHLORIDE 0.9% 100 ML IV SCH ×3 (00:59→12:04)
[2020-08-18 05:08] LABS: Basophils % 0.3 % (0.0-0.8); Eosinophils # 0.2 10*3/uL (0.0-0.87); Eosinophils % 3.1 % (0.00-10.9); Hematocrit 30.7 VOL% (42.0-52.0); Hemoglobin 9.2 GM/DL (14.0-18.0); Immature Granulocytes % 0.5 %; Immature Granulocytes Absolute 0.03 #; Lymphocytes # 0.8 10*3/uL (1.4-4.0); Lymphocytes % 11.5 % (21.2-54.2); Mean Corpuscular Volume 96.8 FL (87-102); Mean Platelet Volume 8.9 FL (9.6-12.0); Monocytes % 8.1 % (1.7-12.7); Neutrophils % 76.5 % (38.7-73.9); Platelet Count 93 T/CUMM (130-400); Red Blood Count 3.17 MC/CUMM (3.8-5.5); White Blood Count 6.5 T/CUMM (4-12)
[2020-08-18 05:13] LABS: INR 1.3; PT Patient Result 14.4 SECS (10.5-12.0)
[2020-08-18 05:28] LABS: Albumin 1.8 G/DL (3.4-5.0); Bilirubin,Total 7.1 MG/DL (0.2-1.0); Calcium 7.6 MG/DL (8.5-10.1); Osmolality,Calculated 287.8 MOS/KG (273-304); Potassium 3.5 MMOL/L (3.5-5.1); Total Protein 5.6 G/DL (6.4-8.2)
[2020-08-18 05:31] LABS: Hypochromasia 1+; Microcytosis 1+; Platelet Estimate Decreased
[2020-08-18] MEDS: PANTOPRAZOLE 40 MG TABLET PO SCH ×2 (06:18→18:00)
[2020-08-18] MEDS: PROPRANOLOL 10 MG TABLET PO SCH ×3 (10:50→21:53)
[2020-08-18] MEDS: LACTULOSE 20 GM/30 ML UDCUP PO SCH ×3 (10:50→21:53)
[2020-08-18] MEDS: CLARITHROMYCIN 500 MG TABLET PO SCH (21:53)
[2020-08-18] MEDS: AMOXICILLIN 500 MG CAPSULE PO SCH (21:53)
[2020-08-19] MEDS: PANTOPRAZOLE 40 MG TABLET PO SCH ×2 (06:06→18:00)
[2020-08-19 07:10] LABS: Basophils % 0.2 % (0.0-0.8); Eosinophils # 0.2 10*3/uL (0.0-0.87); Eosinophils % 3.5 % (0.00-10.9); Hemoglobin 8.4 GM/DL (14.0-18.0); Immature Granulocytes % 1.1 %; Immature Granulocytes Absolute 0.05 #; Lymphocytes # 0.6 10*3/uL (1.4-4.0); Lymphocytes % 13.2 % (21.2-54.2); Mean Corpuscular HGB Conc 32.3 GM/DL (32-36); Mean Corpuscular Volume 90.9 FL (87-102); Mean Platelet Volume 10.2 FL (9.6-12.0); Monocytes % 9.7 % (1.7-12.7); Neutrophils % 72.3 % (38.7-73.9); Platelet Count 69 T/CUMM (130-400); Red Blood Count 2.86 MC/CUMM (3.8-5.5); Red Cell Distribution Width 16.6 % (9.3-17.3); White Blood Count 4.6 T/CUMM (4-12)
[2020-08-19 07:15] LABS: Calcium 7.2 MG/DL (8.5-10.1); Osmolality,Calculated 273.8 MOS/KG (273-304); Potassium 3.3 MMOL/L (3.5-5.1)
[2020-08-19] MEDS ORDERED: POTASSIUM CHLORIDE 20 MEQ TABLET PO PRN (07:37)
[2020-08-19 09:19] LABS: Platelet Estimate Adequate
[2020-08-19] MEDS: CLARITHROMYCIN 500 MG TABLET PO SCH ×2 (09:24→20:27)
[2020-08-19] MEDS: AMOXICILLIN 500 MG CAPSULE PO SCH ×2 (09:24→20:27)
[2020-08-19] MEDS: PROPRANOLOL 10 MG TABLET PO SCH ×3 (09:25→20:27)
[2020-08-19] MEDS: LACTULOSE 20 GM/30 ML UDCUP PO SCH ×3 (09:25→20:27)
[2020-08-19] MEDS: POTASSIUM CHLORIDE 20 MEQ/15 ML UDCUP PO SCH (20:27)
[2020-08-20] MEDS: PANTOPRAZOLE 40 MG TABLET PO SCH ×2 (06:10→19:26)
[2020-08-20 06:37] LABS: Basophils % 0.2 % (0.0-0.8); Eosinophils # 0.2 10*3/uL (0.0-0.87); Eosinophils % 3.4 % (0.00-10.9); Hematocrit 26.5 VOL% (42.0-52.0); Hemoglobin 8.6 GM/DL (14.0-18.0); Immature Granulocytes % 1.6 %; Immature Granulocytes Absolute 0.07 #; Lymphocytes # 0.7 10*3/uL (1.4-4.0); Lymphocytes % 16.1 % (21.2-54.2); Mean Corpuscular HGB Conc 32.5 GM/DL (32-36); Mean Corpuscular Volume 91.4 FL (87-102); Mean Platelet Volume 11.1 FL (9.6-12.0); Monocytes % 8.4 % (1.7-12.7); Neutrophils % 70.3 % (38.7-73.9); Platelet Count 65 T/CUMM (130-400); Red Cell Distribution Width 17.2 % (9.3-17.3); White Blood Count 4.4 T/CUMM (4-12)
[2020-08-20 07:00] LABS: Calcium 7.5 MG/DL (8.5-10.1); Potassium 3.7 MMOL/L (3.5-5.1)
[2020-08-20] MEDS: AMOXICILLIN 500 MG CAPSULE PO SCH ×2 (09:19→21:00)
[2020-08-20] MEDS: PROPRANOLOL 10 MG TABLET PO SCH ×3 (09:19→21:01)
[2020-08-20] MEDS: CLARITHROMYCIN 500 MG TABLET PO SCH ×2 (09:19→21:01)
[2020-08-20] MEDS: POTASSIUM CHLORIDE 20 MEQ/15 ML UDCUP PO SCH ×2 (09:21→21:00)
[2020-08-20] MEDS: LACTULOSE 20 GM/30 ML UDCUP PO SCH ×3 (09:21→21:00)
[2020-08-21 05:51] LABS: Basophils % 0.3 % (0.0-0.8); Eosinophils # 0.1 10*3/uL (0.0-0.87); Eosinophils % 3.7 % (0.00-10.9); Hematocrit 25.1 VOL% (42.0-52.0); Hemoglobin 8.3 GM/DL (14.0-18.0); Immature Granulocytes % 1.1 %; Immature Granulocytes Absolute 0.04 #; Lymphocytes # 0.6 10*3/uL (1.4-4.0); Lymphocytes % 14.9 % (21.2-54.2); Mean Corpuscular HGB Conc 33.1 GM/DL (32-36); Mean Platelet Volume 10.2 FL (9.6-12.0); Monocytes % 8.2 % (1.7-12.7); Neutrophils % 71.8 % (38.7-73.9); Platelet Count 67 T/CUMM (130-400); Red Blood Count 2.79 MC/CUMM (3.8-5.5); Red Cell Distribution Width 17.7 % (9.3-17.3); White Blood Count 3.8 T/CUMM (4-12)
[2020-08-21] MEDS: PANTOPRAZOLE 40 MG TABLET PO SCH (06:14)
[2020-08-21 06:15] LABS: Albumin 1.6 G/DL (3.4-5.0); Bilirubin,Total 8.4 MG/DL (0.2-1.0); Calcium 7.1 MG/DL (8.5-10.1); Potassium 3.7 MMOL/L (3.5-5.1); Total Protein 5.3 G/DL (6.4-8.2)
[2020-08-21 06:47] LABS: Hypochromasia 1+
[2020-08-21 06:48] LABS: Microcytosis 1+; Ovalocytes Slight; Platelet Estimate Decreased
[2020-08-21] MEDS: POTASSIUM CHLORIDE 20 MEQ/15 ML UDCUP PO SCH (09:42)
[2020-08-21] MEDS: CLARITHROMYCIN 500 MG TABLET PO SCH (09:43)
[2020-08-21] MEDS: AMOXICILLIN 500 MG CAPSULE PO SCH (09:43)
[2020-08-21] MEDS: LACTULOSE 20 GM/30 ML UDCUP PO SCH ×2 (09:43→14:34)
[2020-08-21] MEDS: PROPRANOLOL 10 MG TABLET PO SCH ×2 (09:51→16:12)
[2020-08-21] MEDS ORDERED: PNEUMOCOCCAL VACCINE (23 VALENT) 0.5 ML VIAL IM ONE (16:04)
[2020-08-21 16:12] VITALS: BP 98/60
== END 2020-08-21 16:45 | disposition home health service (06) | DRG 380 ==
LOC: EDUNIT# → EDBD → N.ED 20:00 → SUATTDRO 21:33 → N.EDINP 21:33 → N.ICU 08-11 09:00 → N.3E 08-17 11:03
PROVIDERS: ADMIT Internal Medicine; ATTEND Internal Medicine

== ENCOUNTER 2020-08-26 14:27 | Inpatient (IN) ==
[2020-08-26] MEDS ORDERED: ALBUTEROL 2.5 MG/3 ML NEB RESP TX PRN (15:41)
[2020-08-26] MEDS ORDERED: SODIUM CHLORIDE 0.9% 1,000 ML IV PRN ×2 (15:43→16:59)
[2020-08-26] MEDS ORDERED: FUROSEMIDE 20 MG/2 ML VIAL IV PRN (15:43)
[2020-08-26 16:35] LABS: Albumin 1.2 G/DL (3.4-5.0); Basophils % 0.1 % (0.0-0.8); Bilirubin,Total 9.8 MG/DL (0.2-1.0); Calcium 6.8 MG/DL (8.5-10.1); Immature Granulocytes % 4.8 %; Immature Granulocytes Absolute 1.13 #; Lymphocytes # 1.8 10*3/uL (1.4-4.0); Lymphocytes % 7.6 % (21.2-54.2); Mean Corpuscular HGB Conc 28.2 GM/DL (32-36); Mean Corpuscular Volume 102.5 FL (87-102); Mean Platelet Volume 10.9 FL (9.6-12.0); NRBC # 0.03 10*3/uL; Neutrophils % 79.5 % (38.7-73.9); Osmolality,Calculated 263.7 MOS/KG (273-304); Platelet Count 150 T/CUMM (130-400); Potassium 4.3 MMOL/L (3.5-5.1); Red Blood Count 1.21 MC/CUMM (3.8-5.5); Red Cell Distribution Width 21.2 % (9.3-17.3); White Blood Count 23.7 T/CUMM (4-12)
[2020-08-26 16:38] LABS: Hemoglobin 3.5 GM/DL (14.0-18.0)
[2020-08-26 16:39] LABS: Hematocrit 12.4 VOL% (42.0-52.0)
[2020-08-26 16:39] LABS: PT Patient Result 21.6 SECS (10.5-12.0)
[2020-08-26] MEDS ORDERED: SODIUM BICARBONATE 50 MEQ/50 ML VIAL IV ONE (17:20)
[2020-08-26] MEDS ORDERED: CALCIUM GLUCONATE 1,000 MG in SODIUM CHLORIDE 0.9% 100 ML IV ONE (17:30)
[2020-08-26] MEDS ORDERED: CLARITHROMYCIN 500 MG TABLET PO SCH (21:00)
[2020-08-26] MEDS: AMOXICILLIN 500 MG CAPSULE PO SCH (21:02)
[2020-08-26] MEDS: CLARITHROMYCIN 500 MG TABLET PO SCH (21:02)
[2020-08-26] MEDS: LACTULOSE 20 GM/30 ML UDCUP PO SCH (21:02)
[2020-08-26] MEDS: PROPRANOLOL 10 MG TABLET PO SCH (21:02)
[2020-08-26] MEDS: PANTOPRAZOLE 40 MG VIAL IV SCH (21:03)
[2020-08-27 02:27] LABS: Lymphocytes 8 % (20-55); Macrocytosis 1+; Platelet Estimate Normal; Segmented Neutrophils 87 % (50-85); Total Cells Counted 100
[2020-08-27 02:28] LABS: Anisocytosis 3+; Hypochromasia Slight; Polychromasia Slight
[2020-08-27 06:09] LABS: Basophils % 0.2 % (0.0-0.8); Eosinophils # 0.2 10*3/uL (0.0-0.87); Eosinophils % 1.7 % (0.00-10.9); Hematocrit 19.7 VOL% (42.0-52.0); Immature Granulocytes % 1.6 %; Immature Granulocytes Absolute 0.19 #; Lymphocytes # 1.3 10*3/uL (1.4-4.0); Lymphocytes % 11.1 % (21.2-54.2); Mean Corpuscular Volume 89.5 FL (87-102); Mean Platelet Volume 10.5 FL (9.6-12.0); Monocytes % 11.7 % (1.7-12.7); NRBC # 0.14 10*3/uL; Neutrophils % 73.7 % (38.7-73.9); Platelet Count 84 T/CUMM (130-400); Red Cell Distribution Width 17.3 % (9.3-17.3)
[2020-08-27 06:11] LABS: Hemoglobin 6.3 GM/DL (14.0-18.0)
[2020-08-27 06:15] LABS: INR 1.7; PT Patient Result 18.4 SECS (10.5-12.0)
[2020-08-27 06:19] LABS: Bacteria,Urine Occasional /HPF (Few); Bilirubin,Urine Negative (Negative); Blood, Urine Small mg/dL (Negative); Glucose,Urine (UA) Negative (Negative); Hyaline Casts,Urine 3 /LPF (0-3); Ketones,Urine Negative (Negative); Mucus,Urine Occasional /LPF (Occasional); Nitrite,Urine Negative (Negative); Protein,Urine Negative; Squamous Epithelial Cell,Urine Occasional /HPF (0-10); Urine Appearance CLEAR (Clear); Urine Color Amber (Yellow); Urine Specific Gravity 1.009 (1.001-1.035); Urine Urobilinogen < 2.0 EU/DL (0.2-1.0)
[2020-08-27 06:29] LABS: Hypochromasia 1+; Microcytosis 1+
[2020-08-27 06:30] LABS: Anisocytosis 1+; Polychromasia Slight
[2020-08-27 06:31] LABS: Target Cells Slight
[2020-08-27 06:32] LABS: Platelet Estimate Decreased
[2020-08-27 06:42] LABS: Albumin 1.3 G/DL (3.4-5.0); Calcium 7.1 MG/DL (8.5-10.1); Osmolality,Calculated 273.1 MOS/KG (273-304); Potassium 3.8 MMOL/L (3.5-5.1); Total Protein 3.9 G/DL (6.4-8.2)
[2020-08-27 06:52] LABS: Bilirubin,Total 12.6 MG/DL (0.2-1.0)
[2020-08-27] MEDS ORDERED: FUROSEMIDE 20 MG/2 ML VIAL IV ONE ×2 (07:34→12:00)
[2020-08-27] MEDS: PANTOPRAZOLE 40 MG VIAL IV SCH ×2 (08:09→20:52)
[2020-08-27] MEDS: AMOXICILLIN 500 MG CAPSULE PO SCH ×2 (08:09→20:51)
[2020-08-27] MEDS: PROPRANOLOL 10 MG TABLET PO SCH ×3 (08:09→20:52)
[2020-08-27] MEDS: CLARITHROMYCIN 500 MG TABLET PO SCH ×2 (08:09→20:52)
[2020-08-27] MEDS: LACTULOSE 20 GM/30 ML UDCUP PO SCH ×5 (08:09→20:52)
[2020-08-27 08:36] LABS: Hematocrit 20.3 VOL% (42.0-52.0); Hemoglobin 6.6 GM/DL (14.0-18.0)
[2020-08-27] MEDS ORDERED: OCTREOTIDE 100 MCG/ML SYRINGE IV ONE (10:47)
[2020-08-27] MEDS ORDERED: MAGNESIUM SULF RIDER 2 GM/50 ML PREMIX IV PRN (11:20)
[2020-08-27] MEDS: OCTREOTIDE 500 MCG in SODIUM CHLORIDE 0.9% 100 ML IV SCH ×2 (11:29→21:50)
[2020-08-27 15:52] LABS: Hematocrit 26.6 VOL% (42.0-52.0); Hemoglobin 8.6 GM/DL (14.0-18.0)
[2020-08-27 22:00] LABS: Hematocrit 25.5 VOL% (42.0-52.0); Hemoglobin 7.9 GM/DL (14.0-18.0)
[2020-08-28 06:05] LABS: INR 1.6; PT Patient Result 17.2 SECS (10.5-12.0)
[2020-08-28 06:27] LABS: Basophils % 0.4 % (0.0-0.8); Eosinophils # 0.4 10*3/uL (0.0-0.87); Eosinophils % 4.3 % (0.00-10.9); Hemoglobin 8.2 GM/DL (14.0-18.0); Immature Granulocytes Absolute 0.17 #; Lymphocytes # 1.5 10*3/uL (1.4-4.0); Lymphocytes % 17.7 % (21.2-54.2); Mean Corpuscular HGB Conc 32.8 GM/DL (32-36); Mean Corpuscular Volume 88.3 FL (87-102); Mean Platelet Volume 10.7 FL (9.6-12.0); Monocytes % 9.1 % (1.7-12.7); NRBC # 0.07 10*3/uL; Neutrophils % 66.5 % (38.7-73.9); Red Blood Count 2.83 MC/CUMM (3.8-5.5); Red Cell Distribution Width 17.1 % (9.3-17.3); White Blood Count 8.4 T/CUMM (4-12)
[2020-08-28 06:29] LABS: Platelet Count 61 T/CUMM (130-400)
[2020-08-28 06:45] LABS: Albumin 1.3 G/DL (3.4-5.0); Calcium 7.1 MG/DL (8.5-10.1); Osmolality,Calculated 266.5 MOS/KG (273-304); Potassium 3.2 MMOL/L (3.5-5.1)
[2020-08-28 06:51] LABS: Bilirubin,Total 14.7 MG/DL (0.2-1.0)
[2020-08-28 06:55] LABS: Band Neutrophils 1 % (0-10); Total Cells Counted 100
[2020-08-28 06:56] LABS: Anisocytosis 2+; Eosinophils 4 % (0-10); Lymphocytes 22 % (20-55); Macrocytosis 2+; Platelet Estimate Decreased; Polychromasia 2+; Segmented Neutrophils 63 % (50-85)
[2020-08-28] MEDS ORDERED: LACTATED RINGERS 1,000 ML IV SCH (07:00)
[2020-08-28 07:03] LABS: Folate 6.25 NG/ML (5.38-24.0)
[2020-08-28] MEDS ORDERED: LIDOCAINE 2% 5 ML VIAL ONE (08:22)
[2020-08-28] MEDS ORDERED: propofoL 200 MG/20 ML VIAL IV ONE (08:22)
[2020-08-28] MEDS ORDERED: ETOMIDATE 20 MG/10 ML VIAL IV ONE (08:24)
[2020-08-28] MEDS ORDERED: PHENYLEPHRINE 1 MG/10 ML SYRINGE IV ONE (08:28)
[2020-08-28] MEDS ORDERED: SODIUM CHLORIDE 0.9% 1,000 ML IV PRN (08:32)
[2020-08-28] MEDS: AMOXICILLIN 500 MG CAPSULE PO SCH ×2 (10:08→21:10)
[2020-08-28] MEDS: FUROSEMIDE 20 MG TABLET PO SCH (10:08)
[2020-08-28] MEDS: PANTOPRAZOLE 40 MG VIAL IV SCH ×2 (10:08→21:10)
[2020-08-28] MEDS: LACTULOSE 20 GM/30 ML UDCUP PO SCH ×4 (10:08→21:10)
[2020-08-28] MEDS: CLARITHROMYCIN 500 MG TABLET PO SCH ×2 (10:08→21:10)
[2020-08-28] MEDS: PROPRANOLOL 10 MG TABLET PO SCH ×3 (10:08→21:10)
[2020-08-28] MEDS: SPIRONOLACTONE 100 MG TABLET PO SCH (10:15)
[2020-08-28] MEDS: OCTREOTIDE 500 MCG in SODIUM CHLORIDE 0.9% 100 ML IV SCH ×2 (14:43→16:12)
[2020-08-29] MEDS: ONDANSETRON 4 MG/2 ML VIAL IV PRN (01:02)
[2020-08-29] MEDS: OCTREOTIDE 500 MCG in SODIUM CHLORIDE 0.9% 100 ML IV SCH ×3 (02:45→23:48)
[2020-08-29] MEDS ORDERED: SODIUM CHLORIDE 0.9% 1,000 ML IV PRN ×2 (04:25→07:59)
[2020-08-29 05:40] LABS: Basophils % 0.3 % (0.0-0.8); Eosinophils # 0.2 10*3/uL (0.0-0.87); Eosinophils % 3.2 % (0.00-10.9); Hematocrit 23.2 VOL% (42.0-52.0); Hemoglobin 7.6 GM/DL (14.0-18.0); Immature Granulocytes % 1.1 %; Immature Granulocytes Absolute 0.08 #; Lymphocytes # 1.9 10*3/uL (1.4-4.0); Lymphocytes % 25.1 % (21.2-54.2); Mean Corpuscular HGB Conc 32.8 GM/DL (32-36); Mean Corpuscular Volume 87.2 FL (87-102); Mean Platelet Volume 10.7 FL (9.6-12.0); Monocytes % 9.3 % (1.7-12.7); Platelet Count 72 T/CUMM (130-400); Red Blood Count 2.66 MC/CUMM (3.8-5.5); Red Cell Distribution Width 16.8 % (9.3-17.3); White Blood Count 7.5 T/CUMM (4-12)
[2020-08-29 06:03] LABS: Albumin 1.2 G/DL (3.4-5.0); Osmolality,Calculated 267.4 MOS/KG (273-304)
[2020-08-29 06:21] LABS: Bilirubin,Total 13.4 MG/DL (0.2-1.0)
[2020-08-29] MEDS: AMOXICILLIN 500 MG CAPSULE PO SCH ×2 (08:21→21:17)
[2020-08-29] MEDS: CLARITHROMYCIN 500 MG TABLET PO SCH ×2 (08:21→21:17)
[2020-08-29] MEDS: PANTOPRAZOLE 40 MG VIAL IV SCH ×2 (08:21→21:18)
[2020-08-29] MEDS: SPIRONOLACTONE 100 MG TABLET PO SCH (08:30)
[2020-08-29] MEDS: FUROSEMIDE 20 MG TABLET PO SCH (08:30)
[2020-08-29] MEDS: PROPRANOLOL 10 MG TABLET PO SCH ×3 (08:30→21:17)
[2020-08-29] MEDS: LACTULOSE 20 GM/30 ML UDCUP PO SCH ×4 (08:30→21:17)
[2020-08-29 19:40] LABS: Hematocrit 28.3 VOL% (42.0-52.0); Hemoglobin 9.3 GM/DL (14.0-18.0)
[2020-08-29 19:50] LABS: INR 1.4
[2020-08-30 05:29] LABS: Basophils % 0.2 % (0.0-0.8); Eosinophils # 0.2 10*3/uL (0.0-0.87); Eosinophils % 3.8 % (0.00-10.9); Hematocrit 28.7 VOL% (42.0-52.0); Hemoglobin 9.7 GM/DL (14.0-18.0); Immature Granulocytes % 1.3 %; Immature Granulocytes Absolute 0.07 #; Lymphocytes # 0.9 10*3/uL (1.4-4.0); Lymphocytes % 16.7 % (21.2-54.2); Mean Corpuscular HGB Conc 33.8 GM/DL (32-36); Mean Corpuscular Volume 85.9 FL (87-102); Mean Platelet Volume 10.3 FL (9.6-12.0); Monocytes % 9.3 % (1.7-12.7); Neutrophils % 68.7 % (38.7-73.9); Red Cell Distribution Width 16.8 % (9.3-17.3); White Blood Count 5.3 T/CUMM (4-12)
[2020-08-30 05:30] LABS: Platelet Count 54 T/CUMM (130-400); Red Blood Count 3.34 MC/CUMM (3.8-5.5)
[2020-08-30 05:36] LABS: INR 1.4; PT Patient Result 15.6 SECS (10.5-12.0)
[2020-08-30 05:59] LABS: Albumin 1.4 G/DL (3.4-5.0); Calcium 7.2 MG/DL (8.5-10.1); Osmolality,Calculated 268.2 MOS/KG (273-304); Potassium 3.4 MMOL/L (3.5-5.1); Total Protein 4.8 G/DL (6.4-8.2)
[2020-08-30 06:02] LABS: Eosinophils 5 % (0-10); Lymphocytes 9 % (20-55); Platelet Estimate Decreased; Segmented Neutrophils 77 % (50-85); Total Cells Counted 100
[2020-08-30 06:05] LABS: Bilirubin,Total 15.7 MG/DL (0.2-1.0)
[2020-08-30] MEDS: CLARITHROMYCIN 500 MG TABLET PO SCH ×2 (08:28→21:03)
[2020-08-30] MEDS: AMOXICILLIN 500 MG CAPSULE PO SCH ×2 (08:28→21:02)
[2020-08-30] MEDS: SPIRONOLACTONE 100 MG TABLET PO SCH (08:28)
[2020-08-30] MEDS: LACTULOSE 20 GM/30 ML UDCUP PO SCH ×4 (08:29→21:03)
[2020-08-30] MEDS: PROPRANOLOL 10 MG TABLET PO SCH ×3 (08:29→20:50)
[2020-08-30] MEDS: FUROSEMIDE 20 MG TABLET PO SCH ×2 (08:29→16:20)
[2020-08-30] MEDS ORDERED: HEPARIN/NACL 0.9% 2 UNITS/ML 4,000 UNIT/2,000 ML BAG IV ONE (08:45)
[2020-08-30] MEDS ORDERED: fentaNYL 100 MCG/2 ML VIAL IV ONE (09:00)
[2020-08-30] MEDS ORDERED: MIDAZOLAM 2 MG/2 ML VIAL IV ONE (09:00)
[2020-08-30] MEDS: PANTOPRAZOLE 40 MG VIAL IV SCH ×2 (09:57→21:04)
[2020-08-30] MEDS: OCTREOTIDE 500 MCG in SODIUM CHLORIDE 0.9% 100 ML IV SCH ×2 (12:12→22:42)
[2020-08-31 05:08] LABS: Basophils % 0.2 % (0.0-0.8); Eosinophils # 0.1 10*3/uL (0.0-0.87); Eosinophils % 1.5 % (0.00-10.9); Hematocrit 30.6 VOL% (42.0-52.0); Immature Granulocytes % 1.6 %; Immature Granulocytes Absolute 0.14 #; Lymphocytes # 0.8 10*3/uL (1.4-4.0); Lymphocytes % 9.6 % (21.2-54.2); Mean Corpuscular HGB Conc 32.7 GM/DL (32-36); Mean Corpuscular Volume 86.7 FL (87-102); Mean Platelet Volume 9.6 FL (9.6-12.0); Monocytes % 8.5 % (1.7-12.7); Neutrophils % 78.6 % (38.7-73.9); Platelet Count 70 T/CUMM (130-400); Red Blood Count 3.53 MC/CUMM (3.8-5.5); Red Cell Distribution Width 17.3 % (9.3-17.3); White Blood Count 8.6 T/CUMM (4-12)
[2020-08-31 05:14] LABS: INR 1.5; PT Patient Result 16.2 SECS (10.5-12.0)
[2020-08-31 05:28] LABS: Hypochromasia 1+; Microcytosis 1+; Polychromasia Slight; Target Cells Slight
[2020-08-31 05:29] LABS: Anisocytosis 1+; Platelet Estimate Decreased
[2020-08-31 05:55] LABS: Albumin 1.4 G/DL (3.4-5.0); Calcium 7.3 MG/DL (8.5-10.1); Osmolality,Calculated 265.4 MOS/KG (273-304); Potassium 3.3 MMOL/L (3.5-5.1)
[2020-08-31 06:14] LABS: Bilirubin,Total 16.6 MG/DL (0.2-1.0)
[2020-08-31] MEDS: OCTREOTIDE 500 MCG in SODIUM CHLORIDE 0.9% 100 ML IV SCH (07:04)
[2020-08-31] MEDS: PROPRANOLOL 10 MG TABLET PO SCH ×3 (08:37→21:20)
[2020-08-31] MEDS: SPIRONOLACTONE 100 MG TABLET PO SCH (08:38)
[2020-08-31] MEDS: FUROSEMIDE 20 MG TABLET PO SCH ×2 (08:39→16:38)
[2020-08-31] MEDS: PANTOPRAZOLE 40 MG VIAL IV SCH ×2 (08:39→21:20)
[2020-08-31] MEDS: LACTULOSE 20 GM/30 ML UDCUP PO SCH ×4 (08:39→21:20)
[2020-08-31] MEDS: ONDANSETRON 4 MG/2 ML VIAL IV PRN (08:39)
[2020-08-31] MEDS: AMOXICILLIN 500 MG CAPSULE PO SCH ×2 (08:39→21:20)
[2020-08-31] MEDS: CLARITHROMYCIN 500 MG TABLET PO SCH ×2 (08:39→21:20)
[2020-09-01] MEDS: CLARITHROMYCIN 500 MG TABLET PO SCH (08:30)
[2020-09-01] MEDS: SPIRONOLACTONE 100 MG TABLET PO SCH (08:30)
[2020-09-01] MEDS: FUROSEMIDE 20 MG TABLET PO SCH (08:30)
[2020-09-01] MEDS: LACTULOSE 20 GM/30 ML UDCUP PO SCH ×2 (08:31→13:34)
[2020-09-01] MEDS: PROPRANOLOL 10 MG TABLET PO SCH ×2 (08:31→16:15)
[2020-09-01] MEDS: AMOXICILLIN 500 MG CAPSULE PO SCH (08:31)
[2020-09-01] MEDS: PANTOPRAZOLE 40 MG VIAL IV SCH (08:31)
[2020-09-01 11:49] VITALS: BP 101/55
[2020-09-01 17:11] LABS: H pylori Specimen source STOOL; Helicobacter pylori Result Not Detected
== END 2020-09-01 15:01 | disposition swing bed (61) | DRG 252 ==
LOC: N.CC 15:35 → SUATTDRO 15:35 → N.CC 17:01 → N.5E 08-27 16:46
PROVIDERS: ADMIT Internal Medicine; ATTEND Internal Medicine
PROC: IRTIPSW (2020-08-30 09:05)

== ENCOUNTER 2020-09-17 20:35 | Inpatient (IN) ==
[2020-09-17] MEDS ORDERED: NOREPINEPHRINE 4 MG/4 ML VIAL IV ONE ×2 (21:39)
[2020-09-17] MEDS: NOREPINEPHRINE 8 MG in SODIUM CHLORIDE 0.9% 242 ML IV PRN (21:50)
[2020-09-17] MEDS ORDERED: ONDANSETRON 4 MG/2 ML VIAL IV PRN (21:51)
[2020-09-17 21:59] LABS: Basophils % 0.2 % (0.0-0.8); Eosinophils % 0.2 % (0.00-10.9); Hematocrit 28.7 VOL% (42.0-52.0); Hemoglobin 9.2 GM/DL (14.0-18.0); Immature Granulocytes % 6.6 %; Immature Granulocytes Absolute 1.06 #; Lymphocytes # 1.4 10*3/uL (1.4-4.0); Lymphocytes % 8.4 % (21.2-54.2); Mean Corpuscular HGB Conc 32.1 GM/DL (32-36); Mean Corpuscular Volume 95.7 FL (87-102); Mean Platelet Volume 10.9 FL (9.6-12.0); Monocytes % 12.4 % (1.7-12.7); Neutrophils % 72.2 % (38.7-73.9); Platelet Count 144 T/CUMM (130-400); Red Cell Distribution Width 18.7 % (9.3-17.3); White Blood Count 16.2 T/CUMM (4-12)
[2020-09-17] MEDS ORDERED: SODIUM CHLORIDE 0.9% 1,000 ML IV SCH (22:00)
[2020-09-17] MEDS ORDERED: SODIUM CHLORIDE 0.9% 1,000 ML IV PRN (22:07)
[2020-09-17] MEDS ORDERED: SODIUM BICARBONATE 50 MEQ/50 ML VIAL IV ONE (22:09)
[2020-09-17] MEDS: PANTOPRAZOLE 40 MG VIAL IV SCH (22:16)
[2020-09-17 22:19] LABS: Anisocytosis 1+; Burr Cells 1+; Elliptocytes Few; Lymphocytes 8 % (20-55); Poikilocytosis 1+; Segmented Neutrophils 82 % (50-85); Total Cells Counted 100
[2020-09-17 22:20] LABS: Alanine Aminotransferase 46 U/L (16-61); Albumin 1.1 G/DL (3.4-5.0); Alkaline Phosphatase 105 U/L (45-117); Aspartate Amino Transferase 96 U/L (0-37); Blood Urea Nitrogen 40 MG/DL (7-18); Calcium 7.5 MG/DL (8.5-10.1); Carbon Dioxide 10 MMOL/L (21-32); Estimated Glom Filtration Rate 47 ML/MIN; Glucose 138 MG/DL (74-106); Osmolality,Calculated 277.4 MOS/KG (273-304); Polychromasia 1+; Potassium 5.7 MMOL/L (3.5-5.1); Schistocytes Few; Sodium 133 MMOL/L (136-145); Target Cells Few; Total Protein 4.3 G/DL (6.4-8.2)
[2020-09-17 22:21] LABS: Hypochromasia 1+; Platelet Estimate Adequate
[2020-09-17] MEDS: OCTREOTIDE 500 MCG in SODIUM CHLORIDE 0.9% 100 ML IV SCH (22:47)
[2020-09-17] MEDS: SODIUM BICARB INJ 150 MEQ in STERILE WATER INJ 850 ML IV SCH (22:47)
[2020-09-17] MEDS ORDERED: GLUCAGON 1 MG VIAL IM PRN (22:57)
[2020-09-18] MEDS: INSULIN LISPRO 100 UNIT/ML SUBCUT SCH ×4 (00:01→18:29)
[2020-09-18 03:49] LABS: ABG Base Excess -8.2 MMOL/L (-2.5-2.5); ABG HCO3 17.7 MMOL/L (20-26); ABG PH 7.537 (7.35-7.45); ABG TCO2 12.7 MMOL/L (23-27)
[2020-09-18 03:51] LABS: ABG PCO2 15.9 MM HG (35-48)
[2020-09-18 04:49] LABS: Basophils % 0.1 % (0.0-0.8); Eosinophils % 0.2 % (0.00-10.9); Hematocrit 21.9 VOL% (42.0-52.0); Hemoglobin 7.6 GM/DL (14.0-18.0); Immature Granulocytes % 3.5 %; Immature Granulocytes Absolute 0.34 #; Lymphocytes # 1.4 10*3/uL (1.4-4.0); Lymphocytes % 14.4 % (21.2-54.2); Mean Corpuscular HGB Conc 34.7 GM/DL (32-36); Mean Platelet Volume 10.2 FL (9.6-12.0); Monocytes % 10.5 % (1.7-12.7); Neutrophils % 71.3 % (38.7-73.9); Red Blood Count 2.46 MC/CUMM (3.8-5.5); Red Cell Distribution Width 18.1 % (9.3-17.3)
[2020-09-18 04:50] LABS: Platelet Count 82 T/CUMM (130-400); White Blood Count 9.8 T/CUMM (4-12)
[2020-09-18 05:03] LABS: Albumin 1.5 G/DL (3.4-5.0); Calcium 7.3 MG/DL (8.5-10.1); Osmolality,Calculated 279.1 MOS/KG (273-304); Potassium 4.9 MMOL/L (3.5-5.1); Total Protein 4.3 G/DL (6.4-8.2)
[2020-09-18 05:06] LABS: Bilirubin,Total 20.8 MG/DL (0.2-1.0)
[2020-09-18 05:08] LABS: Band Neutrophils 1 % (0-10); Hypochromasia 1+; Lymphocytes 22 % (20-55); Microcytosis 1+; Nucleated Red Blood Cells 1 (0-5); Platelet Estimate Decreased; Segmented Neutrophils 64 % (50-85); Total Cells Counted 100
[2020-09-18 05:09] LABS: INR 1.5; PT Patient Result 16.9 SECS (10.5-12.0)
[2020-09-18] MEDS ORDERED: SODIUM CHLORIDE 0.9% 1,000 ML IV PRN (05:52)
[2020-09-18] MEDS: NOREPINEPHRINE 8 MG in SODIUM CHLORIDE 0.9% 242 ML IV PRN ×2 (07:20→21:36)
[2020-09-18] MEDS: OCTREOTIDE 500 MCG in SODIUM CHLORIDE 0.9% 100 ML IV SCH ×2 (08:47→18:33)
[2020-09-18] MEDS: SODIUM BICARB INJ 150 MEQ in STERILE WATER INJ 850 ML IV SCH ×2 (08:51→19:11)
[2020-09-18] MEDS: LACTULOSE 20 GM/30 ML UDCUP NG SCH ×3 (09:24→21:08)
[2020-09-18] MEDS: PANTOPRAZOLE 40 MG VIAL IV SCH ×2 (09:24→21:08)
[2020-09-18] MEDS ORDERED: SODIUM CHLORIDE 0.9% 1,000 ML IV ONE (13:47)
[2020-09-18 19:06] LABS: Basophils % 0.1 % (0.0-0.8); Eosinophils % 0.3 % (0.00-10.9); Immature Granulocytes % 0.8 %; Immature Granulocytes Absolute 0.09 #; Lymphocytes # 0.9 10*3/uL (1.4-4.0); Lymphocytes % 8.3 % (21.2-54.2); Mean Corpuscular HGB Conc 34.6 GM/DL (32-36); Mean Corpuscular Volume 85.6 FL (87-102); Mean Platelet Volume 10.5 FL (9.6-12.0); Monocytes % 8.8 % (1.7-12.7); NRBC # 0.04 10*3/uL; Neutrophils % 81.7 % (38.7-73.9); Platelet Count 71 T/CUMM (130-400); Red Cell Distribution Width 18.6 % (9.3-17.3); White Blood Count 10.7 T/CUMM (4-12)
[2020-09-18 19:07] LABS: Hemoglobin 9.7 GM/DL (14.0-18.0); Red Blood Count 3.27 MC/CUMM (3.8-5.5)
[2020-09-18] MEDS ORDERED: NOREPINEPHRINE 4 MG/4 ML VIAL IV ONE (21:32)
[2020-09-19] MEDS: MORPHINE 4 MG/1 ML VIAL IV PRN ×2 (00:20→11:07)
[2020-09-19] MEDS: INSULIN LISPRO 100 UNIT/ML SUBCUT SCH ×5 (00:32→23:50)
[2020-09-19] MEDS: NOREPINEPHRINE 8 MG in SODIUM CHLORIDE 0.9% 242 ML IV PRN ×2 (02:49→07:44)
[2020-09-19 04:15] LABS: ABG Base Excess -0.3 MMOL/L (-2.5-2.5); ABG HCO3 24.2 MMOL/L (20-26); ABG TCO2 18.2 MMOL/L (23-27)
[2020-09-19 04:19] LABS: ABG PCO2 20.1 MM HG (35-48); ABG PH 7.605 (7.35-7.45)
[2020-09-19 04:27] LABS: Eosinophils % 0.2 % (0.00-10.9); Hematocrit 26.8 VOL% (42.0-52.0); Hemoglobin 9.3 GM/DL (14.0-18.0); Immature Granulocytes % 0.8 %; Immature Granulocytes Absolute 0.05 #; Lymphocytes # 0.5 10*3/uL (1.4-4.0); Lymphocytes % 8.1 % (21.2-54.2); Mean Corpuscular HGB Conc 34.7 GM/DL (32-36); Mean Corpuscular Volume 86.5 FL (87-102); Mean Platelet Volume 10.3 FL (9.6-12.0); Monocytes % 4.5 % (1.7-12.7); NRBC # 0.15 10*3/uL; Neutrophils % 86.4 % (38.7-73.9); Platelet Count 77 T/CUMM (130-400); White Blood Count 6.2 T/CUMM (4-12)
[2020-09-19] MEDS: OCTREOTIDE 500 MCG in SODIUM CHLORIDE 0.9% 100 ML IV SCH ×2 (04:30→14:50)
[2020-09-19 04:41] LABS: Albumin 1.5 G/DL (3.4-5.0); Calcium 7.4 MG/DL (8.5-10.1); Osmolality,Calculated 279.1 MOS/KG (273-304); Potassium 3.6 MMOL/L (3.5-5.1); Total Protein 4.4 G/DL (6.4-8.2)
[2020-09-19 04:44] LABS: Bilirubin,Total 20.7 MG/DL (0.2-1.0)
[2020-09-19 04:46] LABS: Band Neutrophils 3 % (0-10); Hypochromasia 1+; Lymphocytes 10 % (20-55); Nucleated Red Blood Cells 3 (0-5); Platelet Estimate Decreased; Segmented Neutrophils 84 % (50-85); Total Cells Counted 100
[2020-09-19] MEDS: SODIUM BICARB INJ 150 MEQ in STERILE WATER INJ 850 ML IV SCH ×2 (05:28→16:39)
[2020-09-19 06:35] LABS: ABG Base Excess -0.8 MMOL/L (-2.5-2.5); ABG Oxygen Saturation 98.7 % (95-100); ABG PCO2 21.8 MM HG (35-48); ABG PH 7.581 (7.35-7.45); ABG PO2 146.4 MM HG (80-95); ABG TCO2 20.7 MMOL/L (23-27)
[2020-09-19] MEDS ORDERED: SODIUM CHLORIDE 0.9% 1,000 ML IV STA (07:57)
[2020-09-19] MEDS ORDERED: ALBUMIN 25% 50 GM/200 ML VIAL IV ONE (07:57)
[2020-09-19] MEDS ORDERED: SODIUM CHLORIDE 0.9% 1,000 ML IV ONE (08:01)
[2020-09-19] MEDS: PANTOPRAZOLE 40 MG VIAL IV SCH ×2 (08:17→20:15)
[2020-09-19] MEDS: LACTULOSE 20 GM/30 ML UDCUP NG SCH ×3 (08:20→20:15)
[2020-09-19] MEDS ORDERED: LORazepam 2 MG/1 ML VIAL IV ONE (11:10)
[2020-09-19] MEDS: NOREPINEPHRINE 16 MG in SODIUM CHLORIDE 0.9% 234 ML IV PRN ×3 (11:48→23:06)
[2020-09-19 11:52] LABS: ABG Base Excess -3.8 MMOL/L (-2.5-2.5); ABG HCO3 21.2 MMOL/L (20-26); ABG Oxygen Saturation 95.3 % (95-100); ABG PH 7.461 (7.35-7.45); ABG PO2 76.4 MM HG (80-95); ABG TCO2 17.8 MMOL/L (23-27); Glucose Heart Surgery 100 MG/DL (74-106); Hematocrit Heart Surgery 25.6 PERCENT (42-52); Hemoglobin Heart Surgery 8.2 G/DL (14.0-18.0); Potassium Heart/CVR 3.2 MMOL/L (3.5-5.1)
[2020-09-19] MEDS ORDERED: POTASSIUM CHLORIDE 20 MEQ/15 ML UDCUP PO ONE (12:14)
[2020-09-19] MEDS ORDERED: MORPHINE 4 MG/1 ML VIAL IV ONE (16:39)
[2020-09-19 17:03] LABS: Basophils % 0.1 % (0.0-0.8); Hematocrit 26.8 VOL% (42.0-52.0); Hemoglobin 8.9 GM/DL (14.0-18.0); Immature Granulocytes % 0.8 %; Immature Granulocytes Absolute 0.07 #; Lymphocytes # 0.4 10*3/uL (1.4-4.0); Mean Corpuscular HGB Conc 33.2 GM/DL (32-36); Mean Corpuscular Volume 90.2 FL (87-102); Mean Platelet Volume 10.6 FL (9.6-12.0); NRBC # 0.27 10*3/uL; Neutrophils % 85.1 % (38.7-73.9); Platelet Count 43 T/CUMM (130-400); Red Blood Count 2.97 MC/CUMM (3.8-5.5); Red Cell Distribution Width 21.4 % (9.3-17.3); White Blood Count 8.8 T/CUMM (4-12)
[2020-09-19] MEDS ORDERED: ACETAMINOPHEN 325 MG/10.15 ML UDCUP PO PRN (17:55)
[2020-09-19 18:31] LABS: Band Neutrophils 10 % (0-10); Lymphocytes 7 % (20-55); Nucleated Red Blood Cells 3 (0-5); Segmented Neutrophils 75 % (50-85); Total Cells Counted 100
[2020-09-19 18:35] LABS: Acanthocytes Few; Atypical Lymphocytes Few; Burr Cells Few; Hypochromasia 2+; Microcytosis 2+; Ovalocytes Few; Platelet Estimate Decreased; Polychromasia Slight; Reactive Lymphocytes Few
[2020-09-19] MEDS: RIFAXIMIN 550 MG TABLET NG SCH (20:13)
[2020-09-19] MEDS: DEXTROSE 50% 25 GM/50 ML VIAL IV PRN (23:37)
[2020-09-20] MEDS: OCTREOTIDE 500 MCG in SODIUM CHLORIDE 0.9% 100 ML IV SCH (01:01)
[2020-09-20] MEDS: SODIUM BICARB INJ 150 MEQ in STERILE WATER INJ 850 ML IV SCH ×3 (03:17→20:53)
[2020-09-20] MEDS: NOREPINEPHRINE 16 MG in SODIUM CHLORIDE 0.9% 234 ML IV PRN ×4 (04:14→19:45)
[2020-09-20 04:16] LABS: ABG Base Excess -10.4 MMOL/L (-2.5-2.5); ABG HCO3 16.1 MMOL/L (20-26); ABG Oxygen Saturation 96.1 % (95-100); ABG PCO2 47.6 MM HG (35-48); ABG TCO2 16.8 MMOL/L (23-27)
[2020-09-20 04:18] LABS: ABG PH 7.182 (7.35-7.45)
[2020-09-20] MEDS ORDERED: SODIUM BICARBONATE 50 MEQ/50 ML VIAL IV ONE ×2 (04:31→07:25)
[2020-09-20] MEDS: DEXTROSE 50% 25 GM/50 ML VIAL IV PRN ×6 (04:55→23:45)
[2020-09-20 04:58] LABS: Basophils % 0.3 % (0.0-0.8); Eosinophils % 0.2 % (0.00-10.9); Hematocrit 27.6 VOL% (42.0-52.0); Hemoglobin 8.8 GM/DL (14.0-18.0); Immature Granulocytes % 0.5 %; Immature Granulocytes Absolute 0.07 #; Lymphocytes # 0.8 10*3/uL (1.4-4.0); Lymphocytes % 6.4 % (21.2-54.2); Mean Corpuscular HGB Conc 31.9 GM/DL (32-36); Mean Corpuscular Volume 96.2 FL (87-102); Mean Platelet Volume 12.4 FL (9.6-12.0); Monocytes % 7.4 % (1.7-12.7); Neutrophils % 85.2 % (38.7-73.9); Red Blood Count 2.87 MC/CUMM (3.8-5.5); Red Cell Distribution Width 22.2 % (9.3-17.3)
[2020-09-20 05:03] LABS: Platelet Count 66 T/CUMM (130-400); White Blood Count 12.9 T/CUMM (4-12)
[2020-09-20 05:16] LABS: Albumin 1.7 G/DL (3.4-5.0); Calcium 7.3 MG/DL (8.5-10.1); Potassium 4.1 MMOL/L (3.5-5.1); Total Protein 4.2 G/DL (6.4-8.2)
[2020-09-20 05:19] LABS: Bilirubin,Total 18.9 MG/DL (0.2-1.0)
[2020-09-20 05:20] LABS: Band Neutrophils 6 % (0-10); Lymphocytes 6 % (20-55); Nucleated Red Blood Cells 5 (0-5); Platelet Estimate Decreased; Segmented Neutrophils 77 % (50-85); Total Cells Counted 100
[2020-09-20 05:21] LABS: Hypochromasia 1+; Microcytosis 1+
[2020-09-20 05:27] VITALS: BP 122/59
[2020-09-20] MEDS: INSULIN LISPRO 100 UNIT/ML SUBCUT SCH ×4 (06:23→23:36)
[2020-09-20] MEDS: PANTOPRAZOLE 40 MG VIAL IV SCH ×2 (10:44→20:11)
[2020-09-20] MEDS: RIFAXIMIN 550 MG TABLET NG SCH ×2 (10:47→20:11)
[2020-09-20] MEDS: LACTULOSE 20 GM/30 ML UDCUP NG SCH ×3 (10:47→20:11)
[2020-09-20] MEDS: HYDROCORTISONE 100 MG VIAL IV SCH (17:32)
[2020-09-20] MEDS: DEXTROSE 5% NACL 0.9% 1,000 ML IV SCH (17:36)
[2020-09-21] MEDS: NOREPINEPHRINE 16 MG in SODIUM CHLORIDE 0.9% 234 ML IV PRN ×5 (00:34→15:46)
[2020-09-21] MEDS: HYDROCORTISONE 100 MG VIAL IV SCH ×3 (00:53→16:47)
[2020-09-21] MEDS: DEXTROSE 50% 25 GM/50 ML VIAL IV PRN ×4 (03:55→16:45)
[2020-09-21 03:57] LABS: ABG Base Excess -14.6 MMOL/L (-2.5-2.5); ABG HCO3 13.1 MMOL/L (20-26); ABG Oxygen Saturation 91.5 % (95-100); ABG PCO2 43.3 MM HG (35-48); ABG PO2 77.3 MM HG (80-95); ABG TCO2 13.7 MMOL/L (23-27)
[2020-09-21 03:59] LABS: ABG PH 7.122 (7.35-7.45)
[2020-09-21 04:02] LABS: Basophils % 0.5 % (0.0-0.8); Eosinophils # 0.5 10*3/uL (0.0-0.87); Eosinophils % 6.4 % (0.00-10.9); Hematocrit 28.4 VOL% (42.0-52.0); Hemoglobin 8.6 GM/DL (14.0-18.0); Immature Granulocytes % 5.5 %; Immature Granulocytes Absolute 0.43 #; Lymphocytes # 1.1 10*3/uL (1.4-4.0); Lymphocytes % 14.1 % (21.2-54.2); Mean Corpuscular HGB Conc 30.3 GM/DL (32-36); Mean Corpuscular Volume 100.7 FL (87-102); Monocytes % 7.8 % (1.7-12.7); NRBC # 2.92 10*3/uL; Neutrophils % 65.7 % (38.7-73.9); Red Blood Count 2.82 MC/CUMM (3.8-5.5); Red Cell Distribution Width 22.4 % (9.3-17.3); White Blood Count 7.8 T/CUMM (4-12)
[2020-09-21 04:03] LABS: Platelet Count 47 T/CUMM (130-400)
[2020-09-21] MEDS ORDERED: SODIUM BICARBONATE 50 MEQ/50 ML VIAL IV ONE (04:07)
[2020-09-21 04:34] LABS: Albumin 1.4 G/DL (3.4-5.0); Calcium 6.9 MG/DL (8.5-10.1); Osmolality,Calculated 282.8 MOS/KG (273-304); Total Protein 3.6 G/DL (6.4-8.2)
[2020-09-21 04:47] LABS: Bilirubin,Total 15.3 MG/DL (0.2-1.0)
[2020-09-21 04:51] LABS: Band Neutrophils 14 % (0-10); Eosinophils 1 % (0-10); Lymphocytes 20 % (20-55); Metamyelocytes 2 %; Myelocytes 4 %; Nucleated Red Blood Cells 48 (0-5); Platelet Estimate Decreased; Segmented Neutrophils 53 % (50-85); Total Cells Counted 100
[2020-09-21 04:52] LABS: Atypical Lymphocytes Few; Hypochromasia 1+; Microcytosis 1+
[2020-09-21] MEDS: SODIUM BICARB INJ 150 MEQ in STERILE WATER INJ 850 ML IV SCH ×2 (05:07→14:08)
[2020-09-21] MEDS: INSULIN LISPRO 100 UNIT/ML SUBCUT SCH ×3 (05:08→18:45)
[2020-09-21] MEDS: DEXTROSE 5% NACL 0.9% 1,000 ML IV SCH ×2 (06:11→15:30)
[2020-09-21] MEDS ORDERED: ACETAMINOPHEN 650 MG SUPP RECTAL PRN (06:36)
[2020-09-21] MEDS: PANTOPRAZOLE 40 MG VIAL IV SCH (09:17)
[2020-09-21] MEDS ORDERED: LORazepam 2 MG/1 ML VIAL ONE (17:20)
[2020-09-21] MEDS ORDERED: LORazepam 2 MG/1 ML VIAL IV ONE (17:23)
[2020-09-21] MEDS: MORPHINE 4 MG/1 ML VIAL IV PRN (17:24)
== END 2020-09-21 18:50 | disposition expired | DRG 432 ==
LOC: N.ICU 20:46
PROVIDERS: ADMIT Family Medicine; ATTEND Family Medicine